=== PATIENT | male | born 1965 | race Caucasian/White ===

== ENCOUNTER 2020-02-28 13:16 | Emergency (ER) | payer OTHER, SELFPAY ==
--- NOTE | ~2020-02-28 | XR_ITS ---
EXAMINATION: XR chest 2V DATE: 02/28/2020 13:46 INDICATION: Cough. TECHNIQUE: Frontal and lateral views of the chest were obtained on 3 radiographs. COMPARISON: Chest 2 views 08/11/2019, CT abdomen and pelvis 02/14/2010 FINDINGS: There is mild scarring at the lung apices. No pleural effusion or pneumothorax. The heart s ize is normal. IMPRESSION: 1. Stable mild scarring at the lung apices. Reviewed, dictated and finalized at location A.
[2020-02-28 13:25] VITALS: BP 131/83; PULSE 87; RESP 20; TEMP 36.8; O2SAT 100
--- NOTE | 2020-02-28 13:39 | ED.URI ---
HPI - URI/Sore Throat General Chief Complaint: Upper Respiratory Infection Stated Complaint: Upper respiratory Time Seen by Provider: 02/28/20 13:31 Source: patient and RN notes reviewed Mode of arrival: ambulatory Limitations: no limitations History of Present Illness HPI Narrative: Patient presents today with a 9-day history of productive cough, wheezing. Denies shortness of breath, sore throat, ear pain, fever, nasal congestion. Denies history of asthma or COPD. Patient quit smoking 8 years ago, but currently vapes and smokes marijuana. He has been using cough drops with mild relief. History of pneumonia several years ago. MD elicited complaint: cough Related Data Home Medications Medication Instructions Recorded Confirmed amlodipine 10 mg PO DAILY 02/28/20 02/28/20 duloxetine 60 mg PO DAILY 02/28/20 02/28/20 escitalopram oxalate 10 mg PO DAILY 02/28/20 02/28/20 hydroxyzine HCl 25 mg PO BID PRN 02/28/20 02/28/20 lisinopril 10 mg PO DAILY 02/28/20 02/28/20 trazodone 100 mg PO HS 02/28/20 02/28/20 Allergies Allergy/AdvReac Type Severity Reaction Status Date / Time No Known Allergies Allergy Verified 08/11/19 11:54 Review of Systems Review of Systems: Narrative: CONSTITUTIONAL: Denies body aches, fever, chills, or sweats. EYES: Denies visual changes, redness, or discharge. ENT: Denies rhinorrhea, congestion, sore throat, or otalgia. CARDIOVASCULAR: Denies chest pain, palpitations, or edema. RESPIRATORY: Denies dyspnea.+ Cough, wheezing GASTROINTESTINAL: Denies abdominal pain, nausea, vomiting, or diarrhea. GENITOURINARY: Denies dysuria or hematuria. SKIN: Denies rash, itching, or wounds. MUSCULOSKELETAL: Denies back pain, joint pain, or myalgia. NEUROLOGIC: Denies headache, numbness, tingling, or weakness. PSYCH: Denies depression or anxiety. [facility] Past Medical History Medical History (Updated 02/28/20 @ 14:01 by IVETT Zavala, ) HTN (hypertension) Surgical History Surgical History (Updated 11/11/19 @ 16:11 by IVETT Samuel) H/O spinal fusion Social History Social History (Updated 02/28/20 @ 13:40 by Maki Li, [facility], ) Smoking status: Current every day smoker Tobacco type: e-cigarettes Additional smoking assessment comments: Patient stopped smoking cigarettes 8 years ago, and switched to vaping. Alcohol intake: never Substance use: current Substance use type: marijuana Exam Narrative: Exam Narrative: GENERAL: Well-appearing, well-nourished, and in no acute distress. HEAD: Normocephalic, atraumatic. EYES: EOMI. No redness or drainage. Conjunctivae normal. ENT: Mucous membranes pink and moist. Nares clear. No rhinorrhea. TMs normal bilaterally. Throat normal. Uvula midline. NECK: Normal AROM. Supple. No lymphadenopathy. CHEST: No respiratory distress. Inspiratory and expiratory wheezes to the right lung, otherwise clear. HEART: Regular rate and rhythm. No murmur appreciated. Normal peripheral pulses. EXTREMITIES: Normal range of motion. No edema. SKIN: Warm, dry, no rash. Capillary refill normal. Normal skin turgor. NEURO: No focal deficits. Alert and oriented x3. Gait steady. PSYCH: Normal affect. No signs of depression or anxiety. Course Vital Signs Vital signs: Vital Signs Temperature 98.3 F 02/28/20 13:25 Pulse Rate 87 02/28/20 13:25 Respiratory Rate 02/28/20 13:25 Blood Pressure 131/83 02/28/20 13:25 Pulse Oximetry 100 02/28/20 13:25 Temperature 98.3 F 02/28/20 13:25 Pulse Rate 87 02/28/20 13:25 Respiratory Rate 02/28/20 13:25 Blood Pressure 131/83 02/28/20 13:25 Pulse Oximetry 100 02/28/20 13:25 MDM - URI/Sore Throat Differential Diagnosis Differential diagnosis: Likely upper respiratory infection, viral infection, bronchitis and other (pneumonia) Imaging Data Radiologist's impression: ITS Impressions Chest X-Ray 02/28/20 13:48 IMPRESSION: 1. Stable mild scarring at the pierre
== END 2020-02-28 14:05 | disposition home or self-care (01) ==
PROVIDERS: Emergency Provider Nurse Practitioner
DX: J40 Bronchitis, not specified as acute or chronic (principal); I10 Essential (primary) hypertension; F17.200 Nicotine dependence, unspecified, uncomplicated
CPT/HCPCS: 71046; 99213; G0463

== ENCOUNTER 2020-03-19 04:29 | Emergency (ER) | payer OTHER, SELFPAY ==
--- NOTE | ~2020-03-19 | CT_ITS ---
EXAMINATION: CT abdomen pelvis w con DATE: 03/19/2020 05:47 INDICATION: Periumbilical pain TECHNIQUE: Computed tomography (CT) of the abdomen and pelvis was performed with 100 mL Omnipaque-350 intravenous contrast. Automated exposure control and iterative reconstruction technique were employe d. The dose-length product was 1548.42 mGy-cm. COMPARISON: 02/14/2010 FINDINGS: Mild predominantly dependent atelectasis in the bilateral lower lobes. Heart size is normal. No peric ardial or pleural effusion. Liver surface nodularity consistent with cirrhosis. Gallbladder, spleen, pancreas, bilateral adrenal glands and kidneys are normal. Bowels including the appendix are normal. Small fat-containing umbilical hernia. There is asymmetric swelling of the left rectus abdominis musc le slightly above the level of the umbilicus with mild surrounding inflammatory stranding. No discret e mass or high attenuation hematoma in the spleen most consistent with muscle strain. No free intrape ritoneal gas or fluid. No pathologically enlarged abdominal or pelvic lymphadenopathy. Postoperative change of prior L4 laminectomy and combined instrumented anterior and posterior spinal fusion at L4-L 5. Mild thoracolumbar spondylosis. IMPRESSION: 1. Left rectus muscle strain. No other acute intra-abdominal/pelvic process. 2. Cirrhosis. Reviewed, dictated and finalized at location A.
[2020-03-19 04:38] VITALS: BP 153/100; PULSE 83; RESP 14; TEMP 36.7; O2SAT 100
--- NOTE | 2020-03-19 05:08 | ED.GENADULT ---
HPI - General Adult General Chief complaint: Extremity Injury, Lower Stated complaint: leg swelling Time Seen by Provider: 03/19/20 04:38 History of Present Illness HPI narrative: Pain in the LUQ radiating to the epigastrium for the past few days. Worse over night last night. Started due to coughing while he had bronchitis. The cough has resolved, but the pain is worse. Additionally he says that he has noted swelling in his lower legs bilaterally. He deines any leg pain. He has had similar swelling at times in the past. No CP, SOB, Fever. Related Data Home Medications Medication Instructions Recorded Confirmed amlodipine 10 mg PO DAILY 02/28/20 02/28/20 duloxetine 60 mg PO DAILY 02/28/20 02/28/20 escitalopram oxalate 10 mg PO DAILY 02/28/20 02/28/20 hydroxyzine HCl 25 mg PO BID PRN 02/28/20 02/28/20 lisinopril 10 mg PO DAILY 02/28/20 02/28/20 trazodone 100 mg PO HS 02/28/20 02/28/20 Allergies Allergy/AdvReac Type Severity Reaction Status Date / Time No Known Allergies Allergy Verified 03/19/20 04:44 Review of Systems Review of Systems: All systems reviewed & are unremarkable except as noted in HPI and below Constitutional: Constitutional: Denies chills and Denies fever(s) Cardiovascular: Cardiovascular: Denies chest pain Respiratory: Respiratory: Denies dyspnea Gastrointestinal: Gastrointestinal: Reports abdominal pain, Denies nausea and Denies vomiting Neurologic: Denies dizziness, Denies numbness and Denies weakness PMFSH Past Medical History Medical History HTN (hypertension) Surgical History Surgical History H/O spinal fusion Social History Social History Smoking status: Current every day smoker Tobacco type: e-cigarettes Additional smoking assessment comments: Patient stopped smoking cigarettes 8 years ago, and switched to vaping. Alcohol intake: never Substance use: current Substance use type: marijuana Exam Const: General: no acute distress and alert Nutritional Appearance: obese Orientation/consciousness: patient oriented x3 HENMT: Head: normal to inspection Resp: Effort & Inspection: normal respiratory effort Auscultation: clear to auscultation bilaterally Cardio: Rate: regular rate Rhythm: regular rhythm GI: GI Palp: Yes Tenderness to palpation present (GI) (epigastrium) Skin: General skin exam: normal color Neuro: General: patient oriented x3, moves all extremities and CN's II-XI intact bilaterally Speech: normal speech Extrem: General: edema (trace bilateral ankle edema) Course Vital Signs Vital signs: Vital Signs Temperature 36.7 C 03/19/20 04:38 Pulse Rate 83 03/19/20 04:38 Respiratory Rate 14 03/19/20 04:38 Blood Pressure 153/100 H 03/19/20 04:38 Pulse Oximetry 100 03/19/20 04:38 Temperature 36.7 C 03/19/20 04:38 Pulse Rate 83 03/19/20 04:38 Respiratory Rate 14 03/19/20 04:38 Blood Pressure 153/100 H 03/19/20 04:38 Pulse Oximetry 100 03/19/20 04:38 Medical Decision Making MDM Narrative Medical decision making narrative: His pain seems to be most consistent with a strain of the abdominal wall musculature. He does have significant tenderness over the epigastrium. I will obtain a CT of the abdomen to help rule any GI pathology as a source of his pain. The leg swelling is minimal and symmetrical. He has a history of similar swelling. I feel that it is very unlikely to have any medically significant cause Medical Records Medical records reviewed: Yes I reviewed the patient's medical records. Vital Signs Vital Signs: Vital Signs Temperature 36.7 C 03/19/20 04:38 Pulse Rate 83 03/19/20 04:38 Respiratory Rate 14 03/19/20 04:38 Blood Pressure 153/100 H 03/19/20 04:38 Pulse Oximetry 100 03/19/20 04:38 Temperature 36.7 C 03/19/20
[2020-03-19 05:23] LABS: Basophils Absolute Auto 0.1 K/mm3 (0.0-0.1); Basophils Percent Auto 0.7 % (0.2-1.2); Eosinophils Absolute Auto 0.1 K/mm3 (0-0.3); Hematocrit 43.8 % (42.0-52.0); Hemoglobin 14.7 g/dL (14.0-18.0); Immature Granulocyte Absolute 0.02 K/mm3 (0.00-0.031); Immature Granulocyte Percent A 0.2 % (0-0.5); Lymphocytes Absolute Auto 1.48 K/mm3 (0.9-3.2); Lymphocytes Percent Auto 18.3 % (18.3-44.2); Mean Corpuscular HGB Conc 33.6 g/dl (32-36); Mean Corpuscular Hemoglobin 30.2 pg (26-34); Mean Corpuscular Volume 90.1 fl (80-100); Monocytes Absolute Auto 0.8 K/mm3 (0.1-0.6); Monocytes Percent Auto 9.3 % (2.6-8.5); Neutrophils Absolute Auto 5.7 K/mm3 (1.3-6.7); Neutrophils Percent Auto 70.5 % (45.5-73.1); Platelet Count Result 308 k/mm3 (150-375); Red Blood Count 4.86 M/mm3 (4.6-6.20); White Blood Count 8.1 K/mm3 (4.5-10.0)
[2020-03-19 05:38] LABS: Estimated CRCL calculation 112 ml/min; Estimated Glomerular Filt Rate > 60
[2020-03-19 05:42] LABS: Alanine Aminotransferase 279 U/L (4-50); Albumin Level 4.2 g/dL (3.5-5.1); Alkaline Phosphatase 105 U/L (38-126); Aspartate Amino Transferase 202 U/L (17-59); Bilirubin,Total 0.6 mg/dL (0.2-1.3); Blood Urea Nitrogen 14 mg/dL (9-20); Calcium 8.6 mg/dL (8.4-10.2); Carbon Dioxide 24 mmol/L (22-30); Chloride 100 mmol/L (98-107); Estimated CRCL calculation 141 ml/min; Estimated Glomerular Filt Rate > 60; Glucose 114 mg/dL (75-110); Lipase 558 U/L (23-300); Potassium 3.5 mmol/L (3.4-5.0); Sodium 134 mmol/L (137-145)
[2020-03-19 06:24] VITALS: BP 146/97; PULSE 75; RESP 12; TEMP 36.1; O2SAT 98
== END 2020-03-19 06:26 | disposition home or self-care (01) ==
PROVIDERS: Emergency Provider Emergency Medicine
DX: S30.1XXA Contusion of abdominal wall, initial encounter (principal); Z98.1 Arthrodesis status; F17.290 Nicotine dependence, other tobacco product, uncomplicated; X50.9XXA Other and unspecified overexertion or strenuous movements or postures, initial encounter
CPT/HCPCS: 36415; 74177; 80053; 83690; 85025; 99284; Q9967

== ENCOUNTER 2020-12-17 15:34 | Emergency (ER) | payer OTHER, SELFPAY ==
[2020-12-17 15:40] VITALS: BP 114/59; PULSE 77; RESP 20; TEMP 36.4; O2SAT 98
--- NOTE | 2020-12-17 15:55 | ED.DENTAL ---
HPI - Dental/Oral General Chief complaint: Wound/Laceration Stated complaint: Bit Tongue Time Seen by Provider: 12/17/20 15:55 Source: patient and RN notes reviewed History of Present Illness HPI Narrative: Patient is a 55-year-old male who presents the urgent care with complaints of a injury to the tongue. Patient states approximately 1 month ago he bit the underneath of the left side of the tongue which is continued to be sore. Patient has not done anything [id number] for his symptoms. Patient was very odd and proceeded to wear a woman's thong underwear on his face when asked to wear a mask. No other acute complaints. No acute distress noted. Patient aware of the plan of care.\ Some parts of this dictation were generated by voice recognition software and may contain typographical and/or grammatical inaccuracies. Related Data Home Medications Medication Instructions Recorded Confirmed amlodipine 10 mg PO DAILY 02/28/20 02/28/20 duloxetine 60 mg PO DAILY 02/28/20 02/28/20 escitalopram oxalate 10 mg PO DAILY 02/28/20 02/28/20 hydroxyzine HCl 25 mg PO BID PRN 02/28/20 02/28/20 lisinopril 10 mg PO DAILY 02/28/20 02/28/20 trazodone 100 mg PO HS 02/28/20 02/28/20 Allergies Allergy/AdvReac Type Severity Reaction Status Date / Time No Known Allergies Allergy Verified 12/17/20 15:54 Review of Systems Review of Systems: Narrative: CONSTITUTIONAL: Denies fever, chills, or sweats. EYES: Denies visual changes, redness, or discharge. ENT: Denies rhinorrhea, congestion, sore throat, or otalgia. Reports of a painful mouth sore to the left side of the tongue CARDIOVASCULAR: Denies chest pain, palpitations, or edema. RESPIRATORY: Denies cough or dyspnea. GASTROINTESTINAL: Denies abdominal pain, nausea, vomiting, or diarrhea. GENITOURINARY: Denies dysuria or hematuria. SKIN: Denies rash or itching. MUSCULOSKELETAL: Denies back pain, joint pain, or myalgia. NEUROLOGIC: Denies headache, numbness, or weakness. All other systems reviewed are negative, except as documented in HPI. [facility] Past Medical History Medical History (Updated 12/17/20 @ 16:01 by IVETT Anthony) HTN (hypertension) Surgical History Surgical History H/O spinal fusion Social History Social History Smoking status: Current every day smoker Tobacco type: e-cigarettes/vaping Additional smoking assessment comments: Patient stopped smoking cigarettes 8 years ago, and switched to vaping. Alcohol intake: never Substance use: current Substance use type: marijuana Comments At the time of my signature, I reviewed and agree with the nursing past medical, surgical, social, and family history. There is no relevant family history pertinent to the patient complaint. Exam Narrative: Exam Narrative: GENERAL: This is a well-nourished, well-developed patient, in no apparent distress. HEAD: normocephalic, atraumatic. EYES: PERRL. Sclera clear/white. Vision is grossly intact. EARS: External ears normal NOSE: External nose normal with no obvious nasal discharge, nares without redness, no rhinorrhea. THROAT: Mucous membranes moist, posterior pharynx clear. 0.25 cm avulsion to the underside of the left tongue with mild surrounding tissue damage approximately a total of 0.5 cm injury. Appears to be healing well NECK: Neck supple SKIN: warm, intact with no suspicious lesions or rash, good texture and turgor. NEURO: awake, alert, and oriented to person, place and time. There were no obvious focal neurologic abnormalities. EXTREMITIES: No clubbing, cyanosis, or edema. Course Vital Signs Vital signs: Vital Signs Temperature 97.6 F 12/17/20 15:40 Pulse Rate 77 12/17/20 15:40 Respiratory Rate 20 12/17/20 15:40 Blood Pressure 114/59 L 12/17/20 15:40 Pulse Oximetry 98 12/17/20 15:40 Temperature 97.6 F 12/17/20 15:40 Puls
== END 2020-12-17 16:05 | disposition home or self-care (01) ==
PROVIDERS: Emergency Provider Nurse Practitioner Family; PCP Family Medicine
DX: S01.552A Open bite of oral cavity, initial encounter (principal); W50.3XXA Accidental bite by another person, initial encounter; F17.200 Nicotine dependence, unspecified, uncomplicated; I10 Essential (primary) hypertension
CPT/HCPCS: 99212; G0463

== ENCOUNTER 2021-09-05 08:01 | Emergency (ER) | payer OTHER, SELFPAY ==
--- NOTE | 2021-09-05 08:07 | ED.EYEPROB ---
HPI - Eye Problem General Chief complaint: Eye Problems Stated complaint: Eye Problem Time Seen by Provider: 09/05/21 08:08 Source: patient and RN notes reviewed History of Present Illness HPI Narrative: Patient is a 55-year-old male who presents the urgent care with complaints of right eye redness and clear drainage. Patient states that started yesterday and is causing increased irritation this morning. Patient did remove his contacts yesterday and has not replaced the contacts. States that he flushed the eye with solution but otherwise has not done anything [id number] for his symptoms. Denies of any trauma or injury to the eye. No other acute complaints. No acute distress noted. Patient read the plan of care. Some parts of this dictation were generated by voice recognition software and may contain typographical and/or grammatical inaccuracies. Related Data Home Medications Medication Instructions Recorded Confirmed amlodipine 10 mg PO DAILY 02/28/20 09/05/21 duloxetine 60 mg PO DAILY 02/28/20 09/05/21 escitalopram oxalate 10 mg PO DAILY 02/28/20 09/05/21 hydroxyzine HCl 25 mg PO BID PRN 02/28/20 09/05/21 lisinopril 10 mg PO DAILY 02/28/20 09/05/21 trazodone 100 mg PO HS 02/28/20 09/05/21 Allergies Allergy/AdvReac Type Severity Reaction Status Date / Time No Known Allergies Allergy Verified 09/05/21 08:15 Review of Systems Review of Systems: CONSTITUTIONAL: Denies fever, chills, or sweats. EYES: Reports of redness, irritation, clear drainage to the right eye ENT: Denies rhinorrhea, congestion, sore throat, or otalgia. CARDIOVASCULAR: Denies chest pain, palpitations, or edema. RESPIRATORY: Denies cough or dyspnea. GASTROINTESTINAL: Denies abdominal pain, nausea, vomiting, or diarrhea. GENITOURINARY: Denies dysuria or hematuria. SKIN: Denies rash or itching. MUSCULOSKELETAL: Denies back pain, joint pain, or myalgia. NEUROLOGIC: Denies headache, numbness, or weakness. All other systems reviewed are negative, except as documented in HPI. PMFSH Past Medical History Medical History (Updated 09/05/21 @ 08:18 by IVETT Anthony) HTN (hypertension) Surgical History Surgical History H/O spinal fusion Social History Social History Smoking status: Current every day smoker Tobacco type: e-cigarettes/vaping Additional smoking assessment comments: Patient stopped smoking cigarettes 8 years ago, and switched to vaping. Alcohol intake: never Substance use: current Substance use type: marijuana Comments At the time of my signature, I reviewed and agree with the nursing past medical, surgical, social, and family history. There is no relevant family history pertinent to the patient complaint. Exam Narrative: GENERAL: This is a well-nourished, well-developed patient, in no apparent distress. HEAD: normocephalic, atraumatic. EYES: PERRL. Sclera clear/white. Vision is grossly intact. Mild to moderate injected right conjunctiva with clear drainage and very mild edema noted to the right upper eyelid. EARS: External ears normal NOSE: External nose normal with no obvious nasal discharge, nares without redness, no rhinorrhea. THROAT: Mucous membranes moist NECK: Neck supple CARDIOVASCULAR: Regular rate and rhythm without murmurs, gallops, or rubs. RESPIRATORY: Clear to auscultation. Breath sounds equal bilaterally. No wheezes, rales, or rhonchi. SKIN: warm, intact with no suspicious lesions or rash, good texture and turgor. NEURO: awake, alert, and oriented to person, place and time. There were no obvious focal neurologic abnormalities. EXTREMITIES: No clubbing, cyanosis, or edema. Course Vital Signs Vital signs: Vital Signs Temperature 98.5 F 09/05/21 08:11 Pulse Rate 61 09/05/21 08:11 Respiratory Rate 16 09/05/21 08:11 Blood Pressure 139/80 09/05/21 08:11 Pulse Oximet
[2021-09-05 08:11] VITALS: BP 139/80; PULSE 61; RESP 16; TEMP 36.9; O2SAT 99
[2021-09-05 08:16] VITALS: BP 139/80; PULSE 61; RESP 16; TEMP 36.9; O2SAT 99
== END 2021-09-05 08:20 | disposition home or self-care (01) ==
PROVIDERS: Emergency Provider Nurse Practitioner Family; PCP Family Medicine
DX: H10.9 Unspecified conjunctivitis (principal); F17.200 Nicotine dependence, unspecified, uncomplicated; I10 Essential (primary) hypertension
CPT/HCPCS: 99213; G0463

== ENCOUNTER 2021-12-25 18:11 | Emergency (ER) | payer OTHER, SELFPAY ==
[2021-12-25 18:15] VITALS: BP 149/78; PULSE 87; RESP 20; TEMP 37.6; O2SAT 99
--- NOTE | 2021-12-25 18:29 | ED.URI ---
HPI - URI/Sore Throat General Chief Complaint: Upper Respiratory Infection Stated Complaint: chest congestion Time Seen by Provider: 12/25/21 18:12 Source: patient and RN notes reviewed History of Present Illness HPI Narrative: Patient is a 56-year-old male who presents the urgent care with complaints of 3-week history of sinus drainage, congestion and cough. Patient states he is also having upper back discomfort and burning in the anterior chest. Patient states that 2 weeks ago he was placed on a Z-Moshe by his PCP in symptoms it did not improve . Patient states he has been taking Tylenol, Debora-Ryde, DayQuil, NyQuil. Denies any recent fevers. Patient states that he has a history of pneumonia and was concerned because he almost . No other acute complaints. No acute distress noted. Patient aware of the plan of care. Some parts of this dictation were generated by voice recognition software and may contain typographical and/or grammatical inaccuracies. Related Data Home Medications Medication Instructions Recorded Confirmed amlodipine 10 mg PO DAILY 02/28/20 12/25/21 hydroxyzine HCl 25 mg PO BID PRN 02/28/20 12/25/21 lisinopril 10 mg PO DAILY 02/28/20 12/25/21 Allergies Allergy/AdvReac Type Severity Reaction Status Date / Time No Known Allergies Allergy Verified 12/25/21 18:36 Review of Systems Review of Systems: CONSTITUTIONAL: Denies fever, chills, or sweats. EYES: Denies visual changes, redness, or discharge. ENT: Reports of sinus congestion, rhinorrhea CARDIOVASCULAR: Reports of intermittent anterior chest burning with coughing RESPIRATORY: Reports of cough without dyspnea GASTROINTESTINAL: Denies abdominal pain, nausea, vomiting, or diarrhea. GENITOURINARY: Denies dysuria or hematuria. SKIN: Denies rash or itching. MUSCULOSKELETAL: Reports of upper back discomfort NEUROLOGIC: Denies headache, numbness, or weakness. All other systems reviewed are negative, except as documented in HPI. [facility] Past Medical History Medical History (Updated 12/25/21 @ 18:48 by IVETT Anthony) HTN (hypertension) Surgical History Surgical History H/O spinal fusion Social History Social History Smoking status: Current every day smoker Tobacco type: e-cigarettes/vaping Additional smoking assessment comments: Patient stopped smoking cigarettes 8 years ago, and switched to vaping. Alcohol intake: never Substance use: current Substance use type: marijuana Comments At the time of my signature, I reviewed and agree with the nursing past medical, surgical, social, and family history. There is no relevant family history pertinent to the patient complaint. Exam Narrative: GENERAL: This is a well-nourished, well-developed patient, in no apparent distress. HEAD: normocephalic, atraumatic. EYES: PERRL. Sclera clear/white. Vision is grossly intact. EARS: External ears normal, auditory canals clear and without drainage, TMs normal without perforation. Hearing grossly intact. NOSE: External nose normal with no obvious nasal discharge, nares without redness, clear rhinorrhea. THROAT: Mucous membranes moist, posterior pharynx clear. Moderate postnasal drainage NECK: Neck supple CARDIOVASCULAR: Regular rate and rhythm without murmurs, gallops, or rubs. RESPIRATORY: Clear to auscultation. Breath sounds equal bilaterally. No wheezes, rales, or rhonchi. SKIN: warm, intact with no suspicious lesions or rash, good texture and turgor. NEURO: awake, alert, and oriented to person, place and time. There were no obvious focal neurologic abnormalities. EXTREMITIES: No clubbing, cyanosis, or edema. BACK: Nontender without deformity or crepitance. Course Course Level of Care: Express Care Visit Vital Signs Vital signs: Vital Signs Temperature 99.7 F H 12/25/21 18:15 Pulse Rate 87 12/25/21 18:15 R
--- NOTE | 2021-12-25 18:46 | ECG_ITS ---
Measurements Intervals [place] Rate: 80 P: 26 MI: 149 QRS: 45 QRSD: 97 T: 8 QT: 397 QTc: 459 Interpretive Statements SINUS RHYTHM MINIMAL Q WAVES- INFERIOR LEADS BORDERLINE T WAVE ABNORMALITY- INFERIOR LEADS BASELINE WANDER- I, III, AVR, AVL, AVF BORDERLINE ECG Electronically Signed On 12-25-2021 20:15:20 [employer] CUST[employer]ER REPRESENTATIVE by Darion Mckay D.O.
== END 2021-12-25 18:50 | disposition home or self-care (01) ==
PROVIDERS: Emergency Provider Nurse Practitioner Family; PCP Family Medicine
DX: J32.9 Chronic sinusitis, unspecified (principal); I10 Essential (primary) hypertension
CPT/HCPCS: 93005; 99213; G0463

== ENCOUNTER 2022-03-05 11:14 | Emergency (ER) | payer OTHER, SELFPAY ==
--- NOTE | 2022-03-05 11:19 | ED.URI ---
HPI - URI/Sore Throat General Chief Complaint: Ear Stated Complaint: congestion and ear pain Time Seen by Provider: 03/05/22 11:19 Source: patient and RN notes reviewed History of Present Illness HPI Narrative: Patient is a 56-year-old male who presents the urgent care with complaints of congestion, left ear fullness, cough. Patient states symptoms started on Wednesday and he has been taking Zyrtec and DayQuil. Patient denies of any ill contacts, fever, nausea, vomiting. No other acute complaints. No acute distress noted. Patient aware of the plan of care. Some parts of this dictation were generated by voice recognition software and may contain typographical and/or grammatical inaccuracies. Related Data Home Medications Medication Instructions Recorded Confirmed amlodipine 10 mg PO DAILY 02/28/20 03/05/22 hydroxyzine HCl 25 mg PO BID PRN 02/28/20 03/05/22 lisinopril 10 mg PO DAILY 02/28/20 03/05/22 Allergies Allergy/AdvReac Type Severity Reaction Status Date / Time No Known Allergies Allergy Verified 12/25/21 18:36 Review of Systems Review of Systems: CONSTITUTIONAL: Denies fever, chills, or sweats. EYES: Denies visual changes, redness, or discharge. ENT: Reports of left otalgia, congestion, postnasal drainage and rhinorrhea CARDIOVASCULAR: Denies chest pain, palpitations, or edema. RESPIRATORY: Reports a persistent cough with wheezing, without dyspnea GASTROINTESTINAL: Denies abdominal pain, nausea, vomiting, or diarrhea. GENITOURINARY: Denies dysuria or hematuria. SKIN: Denies rash or itching. MUSCULOSKELETAL: Denies back pain, joint pain, or myalgia. NEUROLOGIC: Denies headache, numbness, or weakness. All other systems reviewed are negative, except as documented in HPI. [facility] Past Medical History Medical History (Updated 03/05/22 @ 11:48 by IVETT Anthony) HTN (hypertension) Surgical History Surgical History H/O spinal fusion Social History Social History Smoking status: Current every day smoker Tobacco type: e-cigarettes/vaping Additional smoking assessment comments: Patient stopped smoking cigarettes 8 years ago, and switched to vaping. Alcohol intake: never Substance use: current Substance use type: marijuana Comments At the time of my signature, I reviewed and agree with the nursing past medical, surgical, social, and family history. There is no relevant family history pertinent to the patient complaint. Exam Narrative: GENERAL: This is a well-nourished, well-developed patient, in no apparent distress. HEAD: normocephalic, atraumatic. EYES: PERRL. Sclera clear/white. Vision is grossly intact. EARS: External ears normal, auditory canals clear and without drainage, mild fluid noted behind left TM without otitis. TMs normal without perforation. Hearing grossly intact. NOSE: External nose normal with no obvious nasal discharge, nares without redness, clear rhinorrhea. THROAT: Mucous membranes moist, posterior pharynx clear. Moderate postnasal drainage NECK: Neck supple CARDIOVASCULAR: Regular rate and rhythm without murmurs, gallops, or rubs. RESPIRATORY: Nonproductive cough noted on exam. Inspiratory wheezes throughout SKIN: warm, intact with no suspicious lesions or rash, good texture and turgor. NEURO: awake, alert, and oriented to person, place and time. There were no obvious focal neurologic abnormalities. EXTREMITIES: No clubbing, cyanosis, or edema. Course Course Level of Care: Express Care Visit Vital Signs Vital signs: Vital Signs Temperature 99.4 F 03/05/22 11:25 Pulse Rate 87 03/05/22 11:25 Respiratory Rate 20 03/05/22 11:25 Blood Pressure 148/82 H 03/05/22 11:25 Pulse Oximetry 96 03/05/22 11:25 Temperature 99.4 F 03/05/22 11:25 Pulse Rate 87 03/05/22 11:25 Respiratory Rate 20 03/05/22 11:25 Blood Pressure 148/82 H
[2022-03-05 11:25] VITALS: BP 148/82; PULSE 87; RESP 20; TEMP 37.4; O2SAT 96
== END 2022-03-05 11:55 | disposition home or self-care (01) ==
PROVIDERS: Emergency Provider Nurse Practitioner Family; PCP Family Medicine
DX: J40 Bronchitis, not specified as acute or chronic (principal); F17.200 Nicotine dependence, unspecified, uncomplicated; I10 Essential (primary) hypertension
CPT/HCPCS: 99213; G0463

== ENCOUNTER 2022-05-29 12:23 | Emergency (ER) | payer OTHER, SELFPAY ==
[2022-05-29 12:27] VITALS: BP 116/80; PULSE 75; RESP 16; TEMP 37.1; O2SAT 98
--- NOTE | 2022-05-29 12:29 | ED.URI ---
HPI - URI/Sore Throat General Chief Complaint: Upper Respiratory Infection Stated Complaint: Aches cough congestion chills headache Time Seen by Provider: 05/29/22 12:30 Source: patient and RN notes reviewed History of Present Illness HPI Narrative: Patient is a 56-year-old male who presents the urgent care with complaints of cough, head congestion, headache and body aches. Patient states that started 2 days ago. Patient states that son is positive for COVID and does live in the home. Patient has been taking Excedrin, ibuprofen and allergy medication with mild symptom relief. Patient states that he is having some low back pain as well and does have a history of pneumonia. Patient denies any shortness of breath or chest pain with his cough. No other acute complaints. No acute distress noted. Patient aware of the plan of care. Some parts of this dictation were generated by voice recognition software and may contain typographical and/or grammatical inaccuracies. Related Data Home Medications Medication Instructions Recorded Confirmed amlodipine 10 mg tablet 10 mg PO DAILY 02/28/20 03/05/22 hydroxyzine HCl 25 mg tablet 25 mg PO BID PRN anxiety 02/28/20 03/05/22 lisinopril 10 mg tablet 10 mg PO DAILY 02/28/20 03/05/22 Allergies Allergy/AdvReac Type Severity Reaction Status Date / Time No Known Allergies Allergy Verified 12/25/21 18:36 Review of Systems Review of Systems: CONSTITUTIONAL: Reports of chills, sweats and fatigue EYES: Denies visual changes, redness, or discharge. ENT: Reports of sinus congestion/head pressure CARDIOVASCULAR: Denies chest pain, palpitations, or edema. RESPIRATORY: Reports of cough without dyspnea GASTROINTESTINAL: Denies abdominal pain, nausea, vomiting, or diarrhea. GENITOURINARY: Denies dysuria or hematuria. SKIN: Denies rash or itching. MUSCULOSKELETAL: Right some of the low back pain. Reports of body aches NEUROLOGIC: Reports of headache All other systems reviewed are negative, except as documented in HPI. [facility] Past Medical History Medical History (Updated 05/29/22 @ 12:52 by IVETT Anthony) HTN (hypertension) Surgical History Surgical History H/O spinal fusion Social History Social History Smoking status: Current every day smoker Tobacco type: e-cigarettes/vaping Additional smoking assessment comments: Patient stopped smoking cigarettes 8 years ago, and switched to vaping. Alcohol intake: never Substance use: current Substance use type: marijuana Comments At the time of my signature, I reviewed and agree with the nursing past medical, surgical, social, and family history. There is no relevant family history pertinent to the patient complaint. Exam Narrative: GENERAL: This is a well-nourished, well-developed patient, in no apparent distress. HEAD: normocephalic, atraumatic. EYES: PERRL. Sclera clear/white. Vision is grossly intact. EARS: External ears normal, auditory canals clear and without drainage, TMs normal without perforation. Hearing grossly intact. NOSE: External nose normal with no obvious nasal discharge, nares without redness, clear to yellow rhinorrhea THROAT: Mucous membranes moist, mild to moderate erythema noted posterior oropharynx with moderate postnasal drainage. NECK: Neck supple CARDIOVASCULAR: Regular rate and rhythm without murmurs, gallops, or rubs. RESPIRATORY: Slightly diminished right upper lobe without wheezes or crackles SKIN: warm, intact with no suspicious lesions or rash, good texture and turgor. NEURO: awake, alert, and oriented to person, place and time. There were no obvious focal neurologic abnormalities. EXTREMITIES: No clubbing, cyanosis, or edema. Course Course Level of Care: Express Care Visit Vital Signs Vital signs: Vital Signs Temperature 98.7 F 05/29/22 12:27 Pulse Rate 75 05/29/22 1
== END 2022-05-29 13:01 | disposition home or self-care (01) ==
PROVIDERS: Emergency Provider Nurse Practitioner Family; PCP Family Medicine
DX: Z20.822 Contact with and (suspected) exposure to COVID-19 (principal); F17.290 Nicotine dependence, other tobacco product, uncomplicated; I10 Essential (primary) hypertension
CPT/HCPCS: 87426; 99213; C9803; G0463

== ENCOUNTER 2022-12-04 14:39 | Emergency (ER) | payer OTHER, SELFPAY ==
--- NOTE | ~2022-12-04 | XR_ITS ---
EXAMINATION: XR foot LT min 3V DATE: 12/04/2022 14:57 INDICATION: Left foot pain at the base of the fifth metatarsal. TECHNIQUE: 4 views of left foot were obtained. COMPARISON: None. FINDINGS: There is moderate hallux valgus. No fracture. There is mild osteoarthritis of first metatar sophalangeal joint and some of the interphalangeal joints and midfoot joints. IMPRESSION: 1. Mild polyarticular osteoarthritis. 2. Moderate hallux valgus. Reviewed, dictated and finalized at location A. [employer]
--- NOTE | 2022-12-04 14:40 | ED.EXTPRO ---
HPI - Extremity Problem General Chief complaint: Extremity Injury, Lower Stated complaint: left foot pain Time Seen by Provider: 12/04/22 14:40 Source: patient Mode of arrival: ambulatory Limitations: no limitations History of Present Illness HPI Narrative: Mr. Davis is a 56-year-old male patient presenting to clinic today with complaints of left foot pain 2-3 weeks. He reports no known injury states he pushed a tool box with the side of his foot but does not recall it hurting afterwards. He does have some mild redness and swelling to the left lateral midfoot. Related Data Home Medications Medication Instructions Recorded Confirmed amlodipine 10 mg tablet 10 mg PO DAILY 12/04/22 12/04/22 buspirone 5 mg tablet 5 mg PO TID 12/04/22 12/04/22 hydroxyzine HCl 25 mg tablet 25 mg PO TID 12/04/22 12/04/22 lisinopril 10 mg tablet 10 mg PO DAILY 12/04/22 12/04/22 omeprazole 40 mg capsule,delayed 40 mg PO DAILY 12/04/22 12/04/22 release ondansetron 8 mg disintegrating 8 mg PO DAILY 12/04/22 12/04/22 tablet trazodone 100 mg tablet 100 mg PO DAILY 12/04/22 12/04/22 zolpidem 10 mg tablet 10 mg PO HS 12/04/22 12/04/22 Allergies Allergy/AdvReac Type Severity Reaction Status Date / Time No Known Allergies Allergy Verified 12/04/22 14:50 Review of Systems Review of Systems: Pertinent positives per HPI. Patient denies any fever, chills, rash, headache, visual changes, dizziness, cough, runny nose, sore throat, shortness of breath, chest pain, palpitations, nausea, vomiting, diarrhea, constipation, abdominal pain, or any urinary issues. [facility] Past Medical History Medical History (Updated 12/04/22 @ 15:07 by Edinson Fairchild APRN) HTN (hypertension) Surgical History Surgical History H/O spinal fusion Social History Social History Smoking status: Current every day smoker Tobacco type: e-cigarettes/vaping Additional smoking assessment comments: Patient stopped smoking cigarettes 8 years ago, and switched to vaping. Alcohol intake: never Substance use: current Substance use type: marijuana Comments At the time of my signature, I reviewed and agree with the nursing past medical, surgical, social, and family history. There is no relevant family history pertinent to the patient complaint. Exam Narrative: General: Well-developed, well nourished, in no apparent distress Head: Normocephalic, atraumatic. Cardio: Regular rate and rhythm, s1 and s2 normal, no murmur appreciated. Resp: Clear to auscultation bilaterally, no rhonchi, rales, wheezing or rubs. Musculoskeletal: No deformity, point tenderness, redness, and swelling to the left lateral midfoot, grossly normal range of motion, muscle strength strong and equal, peripheral pulse strong, no edema, no cyanosis, normal gait and station Course Course Emergency Course: Portions of this record may have been created with voice recognition software. Level of Care: Express Care Visit Vital Signs Vital signs: Vital Signs Temperature 36.7 C 12/04/22 14:43 Pulse Rate 61 12/04/22 14:43 Respiratory Rate 18 12/04/22 14:43 Blood Pressure 121/78 12/04/22 14:43 Pulse Oximetry 100 12/04/22 14:43 Oxygen Delivery Room Air 12/04/22 14:43 Temperature 36.7 C 12/04/22 14:43 Pulse Rate 61 12/04/22 14:43 Respiratory Rate 18 12/04/22 14:43 Blood Pressure 121/78 12/04/22 14:43 Pulse Oximetry 100 12/04/22 14:43 Oxygen Delivery Room Air 12/04/22 14:43 Vital signs reviewed MDM - Extremity (Nontraumatic) MDM Narrative Medical decision making narrative: At the time of visit patient is resting comfortably on the exam table. x-ray was performed of the left foot to rule out spurring or gout. X-ray was negative for any sign of gout or some spurring however he does have osteoarthritis. Supportive emilia
[2022-12-04 14:43] VITALS: BP 121/78; PULSE 61; RESP 18; TEMP 36.7; O2SAT 100
--- NOTE | 2022-12-04 15:07 | PC.NURSE ---
PT DECLINED ICE FOR COMFORT
== END 2022-12-04 15:15 | disposition home or self-care (01) ==
PROVIDERS: Emergency Provider Nurse Practitioner Family; PCP Family Medicine
DX: M79.672 Pain in left foot (principal); F17.290 Nicotine dependence, other tobacco product, uncomplicated; I10 Essential (primary) hypertension
CPT/HCPCS: 73630; 99213; G0463